=== PATIENT | male | born 1990 | race African-American/Black ===

== ENCOUNTER 2023-01-02 12:41 | Emergency (ER) | payer OTHER ==
[~2023-01-02] VITALS: Ht 170.2 cm; Wt 151.0 kg
--- NOTE | 2023-01-02 12:41 | NUR ---
BIBS C/O HAVING CONSTANT NOSE BLEED SINCE YESTERDAY, PT NOSE IS CURRENTLY NOT BLEEDING UPON ARRIVAL
--- NOTE | 2023-01-02 13:18 | NUR ---
SWAB FOR COVID19 SENT TO LAB
[2023-01-02] MEDS ORDERED: IBUP-1955 PO (14:05)
[2023-01-02 14:14] VITALS: BP 172/91
--- NOTE | 2023-01-02 14:14 | NUR ---
Patient discharged to home in stable condition. Written and verbal after care instructions given. Patient verbalizes understanding of instruction.
== END 2023-01-02 14:14 | disposition home or self-care (01) ==
LOC: ER 12:47
DX: J06.9 Acute upper respiratory infection, unspecified (principal); R05.9 Cough, unspecified; R09.81 Nasal congestion; R04.0 Epistaxis; I10 Essential (primary) hypertension; E11.9 Type 2 diabetes mellitus without complications; Z20.822 Contact with and (suspected) exposure to COVID-19
CPT/HCPCS: 99283; 87426; 82962 ×2; C9803